=== PATIENT | male | born 1985 | race African-American/Black ===

== ENCOUNTER 2025-03-19 08:20 | Emergency (ER) | payer OTHER ==
[~2025-03-19] VITALS: Ht 175.3 cm; Wt 71.2 kg
[2025-03-19 09:24] VITALS: BP 131/80
== END 2025-03-19 09:24 | disposition other institution, planned readmission (95) ==
LOC: ED 08:20
DX: D61.818 Other pancytopenia (principal); J45.909 Unspecified asthma, uncomplicated; Z91.011 Allergy to milk products; Z91.018 Allergy to other foods
CPT/HCPCS: 99283

== ENCOUNTER 2025-06-09 16:27 | Emergency (ER) | payer OTHER ==
[~2025-06-09] VITALS: Ht 175.3 cm; Wt 72.8 kg
[2025-06-09 17:03] LABS: BASOPHILS 0.6 % (0.2-1.2); EOSINOPHILS 0.6 % (0.8-7.0); LYMPHOCYTES 58.2 % (21.8-53.1); MCH 36.7 PG (25.7-32.2); MCHC 33.6 g/dL (32.3-36.5); MCV 109.2 fL (79.0-92.2); MONOCYTES 12.9 % (5.3-12.2); NEUTROPHILS 27.7 % (34.0-67.9); RBC 2.07 M/uL (4.63-6.08)
[2025-06-09 17:12] LABS: GLOMERULAR FILTRATION RATE,EST 112.0 mL/min (>60); INR 1.17 (0.80-1.30); PROTIME 14.5 Sec (11.2-14.2); UREA NITROGEN 7.0 mg/dL (7-18)
[2025-06-09] MEDS ORDERED: VENTOLIN HFA18 GM PO (17:14)
[2025-06-09] MEDS ORDERED: [UNRECOGNIZED DRUG - OTHER] TP (17:18)
[2025-06-09 19:14] VITALS: BP 131/82
== END 2025-06-09 19:14 | disposition other institution, planned readmission (95) ==
LOC: ED 16:27
PROVIDERS: Emergency Medicine
DX: D61.818 Other pancytopenia (principal); J45.909 Unspecified asthma, uncomplicated; Z91.0110 Allergy to milk products, unspecified; Z91.018 Allergy to other foods; Z79.899 Other long term (current) drug therapy
CPT/HCPCS: 36415; 80048; 85025; 85060; 85610; 99283